=== PATIENT | male | born 1940 | race Caucasian/White ===

== ENCOUNTER 2017-02-12 09:57 | Emergency (ER) | payer MEDICARE ==
[2017-02-12] MEDS ORDERED: IPRATROPIUM-ALBUTEROL 3 ML NEB INHALATION STA (10:33)
--- NOTE | 2017-02-12 10:35 | ED ---
General Adult HPI - General Chief complaint: Upper Respiratory Infection Stated complaint: Cough Time Seen by Provider: 02/12/17 10:27 Source: patient, RN notes reviewed Mode of arrival: ambulatory Limitations: no limitations - History of Present Illness Initial comments: Patient is a pleasant 76-year-old male presenting to the emergency Department with cough. Onset was a day or 2 ago. Breathing is somewhat worse today. Patient does have yellow productive sputum. No fevers. Patient did recently drive from [place] however the trip took 10 days as they made many stops. Patient is on oxygen normally. No leg pain or leg swelling. No chest pain. - Related Data Home Medications Medication Instructions Recorded Confirmed Apremilast [Otezla] 30 mg PO BID 02/12/17 02/12/17 Aspirin EC [Ecotrin Low Dose] 81 mg PO DAILY 02/12/17 02/12/17 Clopidogrel [Plavix] 75 mg PO DAILY 02/12/17 02/12/17 Cyanocobalamin (Vitamin B-12) 1,000 mcg PO DAILY 02/12/17 02/12/17 [Vitamin B-12] Ferrous Sulfate [Feosol] 650 mg PO DAILY 02/12/17 02/12/17 Furosemide [Lasix] 20 mg PO DAILY 02/12/17 02/12/17 Levothyroxine Sodium [Synthroid] 150 mcg PO QAM 02/12/17 02/12/17 Lisinopril 30 mg PO DAILY 02/12/17 02/12/17 Metoprolol Succinate (ER) [Toprol 50 mg PO BID 02/12/17 02/12/17 Xl] Multivitamins, Thera [Multivitamin 1 tab PO HS 02/12/17 02/12/17 (formulary)] Pioglitazone [Actos] 45 mg PO QAM 02/12/17 02/12/17 Pravastatin Sodium 80 mg PO HS 02/12/17 02/12/17 Spironolactone [Aldactone] 12.5 mg PO Q72H 02/12/17 02/12/17 cloNIDine HCL [Catapres] 0.1 mg PO HS 02/12/17 02/12/17 glipiZIDE [Glucotrol] 20 mg PO BID 02/12/17 02/12/17 metFORMIN HCL 1,000 mg PO BID 02/12/17 02/12/17 Previous Rx's Medication Instructions Recorded Albuterol Inhaler [Ventolin Hfa 2 puff INHALATION Q4HR PRN #1 02/12/17 Inhaler] inhaler Azithromycin [Zithromax Z-pack] 250 mg PO DIRECTED #6 tab 02/12/17 predniSONE 20 mg PO BID #10 tab 02/12/17 Allergies Allergy/AdvReac Type Severity Reaction Status Date / Time No Known Allergies Allergy Verified 02/12/17 10:07 Review of Systems ROS Statement: Those systems with pertinent positive or pertinent negative responses have been documented in the HPI. ROS Other: All systems not noted in ROS Statement are negative. Constitutional: Denies: fever Eyes: Denies: eye pain ENT: Denies: ear pain Respiratory: Reports: cough, dyspnea Cardiovascular: Denies: chest pain Endocrine: Denies: fatigue Gastrointestinal: Denies: abdominal pain Genitourinary: Denies: dysuria Musculoskeletal: Denies: back pain Skin: Denies: rash Neurological: Denies: weakness Past Medical History Past Medical History: Coronary Artery Disease (CAD), Heart Failure, CVA/TIA, Diabetes Mellitus, Hyperlipidemia, Hypertension Additional Past Medical History / Comment(s): seasonal allergies. iron deficient anemia History of Any Multi-Drug Resistant Organisms: None Reported Past Surgical History: Back Surgery, Cardiac Valve Replacement, Coronary Bypass/ CABG, Heart Catheterization With Stent, Orthopedic Surgery Additional Past Surgical History / Comment(s): x3 back. right foot. right/ left hip replacement Smoking Status: Former smoker Past Alcohol Use History: None Reported Past Drug Use History: None Reported General Exam Limitations: no limitations General appearance: alert, in no apparent distress Head exam: Present: atraumatic Eye exam: Present: normal appearance, PERRL ENT exam: Present: normal oropharynx Neck exam: Present: normal inspection Respiratory exam: Present: rhonchi Cardiovascular Exam: Present: regular rate, normal rhythm GI/Abdominal exam: Present: soft. Absent: tenderness Extremities exam: Present: normal inspection. Absent: pedal edema, calf tenderness Neurological exam: Present: alert Psychiatric exam: Present: normal affect, normal mood Skin exam: Present: normal color Course Vital Signs 02/12/17 02/12/17 02/12/17 10:00 10:19 10:25 Temperature 98.1 F Pulse Rate 83 81 Respiratory 18 20 18 Rate Blood Pressure 132/60 128/59 O2 Sat by Pulse 93 L 96 Oximetry 02/12/17 02/12/17 02/12/17 11:15 11:27 11:36 Temperature Pulse Rate 72 83 74 Respiratory 20 Rate Blood Pressure 114/56 O2 Sat by Pulse 95 Oximetry 02/12/17 12:18 Temperature Pulse Rate 74 Respiratory 20 Rate Blood Pressure 129/63 O2 Sat by Pulse 96 Oximetry EKG Findings - EKG Comments: EKG Findings:: Normal sinus rhythm 74. CO 160. QRS 110. QT 404. QTC 448. Normal axis. Normal QRS. Normal ST-T. Medical Decision Making - Medical Decision Making Patient reevaluated and resting comfortably in bed. Patient is comfortable with discharge home. Patient was updated on results and need for follow-up. - Lab Data Result diagrams: 02/12/17 10:56 02/12/17 10:56 Lab Results 02/12/17 02/12/17 02/12/17 Range/Units 10:56 10:56 10:56 WBC 6.5 (3.8-10.6) k/uL RBC 4.50 (4.30-5.90) m/uL Hgb 13.3 (13.0-17.5) gm/dL Hct 41.3 (39.0-53.0) % MCV 91.6 (80.0-100.0) fL MCH 29.6 (25.0-35.0) pg MCHC 32.3 (31.0-37.0) g/dL RDW 16.8 H (11.5-15.5) % Plt Count 218 (150-450) k/uL Neutrophils % 78 % Lymphocytes % 9 % Monocytes % 8 % Eosinophils % 3 % Basophils % 1 % Neutrophils # 5.0 (1.3-7.7) k/uL Lymphocytes # 0.6 L (1.0-4.8) k/uL Monocytes # 0.5 (0-1.0) k/uL Eosinophils # 0.2 (0-0.7) k/uL Basophils # 0.1 (0-0.2) k/uL Anisocytosis Slight PT (9.0-12.0) sec INR (<1.2) APTT (22.0-30.0) sec D-Dimer (<0.60) mg/L FEU Sodium 139 (137-145) mmol/L Potassium 5.0 (3.5-5.1) mmol/L Chloride 105 (98-107) mmol/L Carbon Dioxide 22 (22-30) mmol/L Anion Gap 12 mmol/L BUN 21 H (9-20) mg/dL Creatinine 0.90 (0.66-1.25) mg/dL Est GFR (MDRD) Af Amer >60 (>60 ml/min/1.73 sqM) Est GFR (MDRD) Non-Af >60 (>60 ml/min/1.73 sqM) Glucose 137 H (74-99) mg/dL Calcium 9.2 (8.4-10.2) mg/dL Total Bilirubin 0.4 (0.2-1.3) mg/dL AST 29 (17-59) U/L ALT 30 (21-72) U/L Alkaline Phosphatase 74 (38-126) U/L Total Creatine Kinase 42 L (55-170) U/L CK-MB (CK-2) 1.0 (0.0-2.4) ng/mL CK-MB (CK-2) Rel Index 2.4 Troponin I 0.013 (0.000-0.034) ng/mL NT-Pro-B Natriuret Pep pg/mL Total Protein 6.9 (6.3-8.2) g/dL Albumin 3.7 (3.5-5.0) g/dL 02/12/17 02/12/17 Range/Units 10:56 10:56 WBC (3.8-10.6) k/uL RBC (4.30-5.90) m/uL Hgb (13.0-17.5) gm/dL Hct (39.0-53.0) % MCV (80.0-100.0) fL MCH (25.0-35.0) pg MCHC (31.0-37.0) g/dL RDW (11.5-15.5) % Plt Count (150-450) k/uL Neutrophils % % Lymphocytes % % Monocytes % % Eosinophils % % Basophils % % Neutrophils # (1.3-7.7) k/uL Lymphocytes # (1.0-4.8) k/uL Monocytes # (0-1.0) k/uL Eosinophils # (0-0.7) k/uL Basophils # (0-0.2) k/uL Anisocytosis PT 10.4 (9.0-12.0) sec INR 1.0 (<1.2) APTT 24.8 (22.0-30.0) sec D-Dimer 0.99 H (<0.60) mg/L FEU Sodium (137-145) mmol/L Potassium (3.5-5.1) mmol/L Chloride (98-107) mmol/L Carbon Dioxide (22-30) mmol/L Anion Gap mmol/L BUN (9-20) mg/dL Creatinine (0.66-1.25) mg/dL Est GFR (MDRD) Af Amer (>60 ml/min/1.73 sqM) Est GFR (MDRD) Non-Af (>60 ml/min/1.73 sqM) Glucose (74-99) mg/dL Calcium (8.4-10.2) mg/dL Total Bilirubin (0.2-1.3) mg/dL AST (17-59) U/L ALT (21-72) U/L Alkaline Phosphatase (38-126) U/L Total Creatine Kinase (55-170) U/L CK-MB (CK-2) (0.0-2.4) ng/mL CK-MB (CK-2) Rel Index Troponin I (0.000-0.034) ng/mL NT-Pro-B Natriuret Pep 1310 pg/mL Total Protein (6.3-8.2) g/dL Albumin (3.5-5.0) g/dL - Radiology Data Radiology results: report reviewed (Computed tomography scan the chest shows interstitial lung disease. No pulmonary embolism.), image reviewed (Two-view chest x-ray shows some interstitial changes.) Disposition Clinical Impression: Bronchitis Disposition: HOME SELF-CARE Condition: Stable Instructions: Acute Bronchitis (ED), COPD (Chronic Obstructive Pulmonary Disease) (ED) Additional Instructions: Please follow-up with primary care physician in the next couple of days for recheck. Return for fevers, difficulty breathing, worsening change in symptoms or other concerns. Prescriptions: Albuterol Inhaler [Ventolin Hfa Inhaler] 2 puff INHALATION Q4HR PRN #1 inhaler PRN Reason: Dyspnea Azithromycin [Zithromax Z-pack] 250 mg PO DIRECTED #6 tab predniSONE 20 mg PO BID #10 tab Referrals: Nonstaff,Physician [Primary Care Provider] - 1-2 days Time of Disposition: 13:29
[2017-02-12 11:08] LABS: Anisocytosis Slight; Basophils # (A) 0.1 k/uL (0-0.2); Basophils % (A) 1 %; CH 29.6; CHCM 32.5; Eosinophils # (A) 0.2 k/uL (0-0.7); Eosinophils % (A) 3 %; HCT 41.3 % (39.0-53.0); HDW 2.55; HGB 13.3 gm/dL (13.0-17.5); Luc # (Auto) 0.17; Luc % (Auto) 3; Lymphocytes # (A) 0.6 k/uL (1.0-4.8); Lymphocytes % (A) 9 %; MCH 29.6 pg (25.0-35.0); MCHC 32.3 g/dL (31.0-37.0); MCV 91.6 fL (80.0-100.0); Mean Platelet Volume 8.3; Monocytes # (A) 0.5 k/uL (0-1.0); Monocytes % (A) 8 %; Neutrophils % (A) 78 %; RDW 16.8 % (11.5-15.5); WBC 6.5 k/uL (3.8-10.6); WBC (Perox) 6.65
[2017-02-12 11:21] LABS: ALT 30 U/L (21-72); AST 29 U/L (17-59); Alkaline Phosphatase 74 U/L (38-126); Anion Gap 12 mmol/L; Blood Urea Nitrogen 21 mg/dL (9-20); Calcium 9.2 mg/dL (8.4-10.2); Carbon Dioxide 22 mmol/L (22-30); Chloride 105 mmol/L (98-107); Glucose 137 mg/dL (74-99); Non-African American GFR(MDRD) >60 (>60 ml/min/1.73 sqM); Sodium 139 mmol/L (137-145); Total Bilirubin 0.4 mg/dL (0.2-1.3); Total Protein 6.9 g/dL (6.3-8.2)
[2017-02-12 11:22] LABS: Partial Thromboplastin Time 24.8 sec (22.0-30.0); Prothrombin Time 10.4 sec (9.0-12.0)
[2017-02-12 11:44] LABS: Troponin I 0.013 ng/mL (0.000-0.034)
[2017-02-12] MEDS ORDERED: RX INFO: IV CONTRAST WAS GIVEN 1 EACH MISC MISCELLANE PRN (12:13)
--- NOTE | 2017-02-12 12:20 | XR ---
EXAMINATION TYPE: XR chest 2V DATE OF EXAM: 02/12/2017 COMPARISON: NONE HISTORY: Difficulty breathing TECHNIQUE: Frontal and lateral views of the chest are obtained. FINDINGS: Patient is post median sternotomy. Heart size is borderline increased. There are overlying cardiac leads. Azygos lobe is present. Interstitium is increased. Patient is post cardiac valve repl acement and there is postop change to the lumbar spine. Prominent lung volume may be indicative of CO PD. No pneumothorax or pleural effusion evident. IMPRESSION: Correlate for possible congestive heart failure.
--- NOTE | 2017-02-12 13:00 | CT ---
EXAMINATION TYPE: CT angio chest DATE OF EXAM: 02/12/2017 COMPARISON: Chest x-ray same date HISTORY: Cough and SOB CT DLP: 404.5 mGycm Automated exposure control for dose reduction was used. CONTRAST: CTA scan of the thorax is performed with IV Contrast, patient injected with 70 mL of Omnipaque 350, p ulmonary embolism protocol. MIP images are created and reviewed. 3D reconstructed images are create d on an independent workstation and reviewed. FINDINGS: LUNGS: There is bilateral prominence of interstitial densities. No evident pneumonia. Pleural-based n odule present in the right upper lobe axial image 71 measures approximately 13 mm. Emphysematous ruiz ges are also present within the lungs. Azygos lobe is noted. No pleural or pericardial effusion. The heart is enlarged. Coronary artery calcifications are present. Aortic valve replacement change is pre sent. No axillary adenopathy. Patient is post median sternotomy. AORTA: No additional significant abnormality is seen. MEDIASTINUM: There is satisfactory enhancement of the pulmonary artery and its branches, there is no CT evidence for pulmonary embolism. There are no greater than 1 cm hilar or mediastinal lymph nodes. OTHER: No additional significant abnormality is seen. IMPRESSION: FINDINGS COMPATIBLE WITH CHEST X-RAY WITH INTERSTITIAL LUNG DISEASE, EMPHYSEMA. CORONARY ARTERY DISEA SE. NO EVIDENT PULMONARY EMBOLISM.
[2017-02-12 13:58] VITALS: BP 119/58; PULSE 94; RESP 18; TEMP 96.9
== END 2017-02-12 13:57 | disposition home or self-care (01) ==
LOC: EC 09:57
DX: J40 Bronchitis, not specified as acute or chronic (principal); I25.10 Atherosclerotic heart disease of native coronary artery without angina pectoris; I11.0 Hypertensive heart disease with heart failure; I50.9 Heart failure, unspecified; E78.5 Hyperlipidemia, unspecified; Z86.73 Personal history of transient ischemic attack (TIA), and cerebral infarction without residual deficits; D50.9 Iron deficiency anemia, unspecified; E11.9 Type 2 diabetes mellitus without complications; Z87.891 Personal history of nicotine dependence; Z79.84 Long term (current) use of oral hypoglycemic drugs; Z79.82 Long term (current) use of aspirin; Z79.899 Other long term (current) drug therapy; Z79.01 Long term (current) use of anticoagulants
CPT/HCPCS: 36415; 94640; 93005; 85379; 83880; 80053; 82550; 82553; 84484; 85025; 85610; 85730; 71020; 71275; 99284; Q9967